=== PATIENT | female | born 1945 | race Caucasian/White ===

== ENCOUNTER 2017-07-28 09:44 | Emergency (ER) | payer MEDICARE, OTHER ==
[2017-07-28] MEDS ORDERED: CEPHALEXIN500 M1 PO (10:01)
[2017-07-28] MEDS ORDERED: DOXYCYC MONO100 M2 PO (10:07)
[2017-07-28 10:23] VITALS: BP 132/88
== END 2017-07-28 10:20 | disposition home or self-care (01) ==
LOC: ED 09:44
DX: S70.311A Abrasion, right thigh, initial encounter (principal); W17.89XA Other fall from one level to another, initial encounter; Z89.611 Acquired absence of right leg above knee